=== PATIENT | male | born 1985 | race Caucasian/White ===

== ENCOUNTER → 2024-09-01 | Outpatient (CLI) | payer OTHER, SELFPAY ==
--- NOTE | 2024-09-01 16:20 | RAD_ITS ---
PROCEDURE: CHEST PA AND LATERAL REASON FOR EXAM: Cough. TECHNIQUE: Frontal and lateral views of the chest. COMPARISON: None. FINDINGS: Lungs: Lungs clear of pneumonia and congestion. Suspected subsegmental atelectasis in the right lower lobe. On the lateral projection, a 1.3 cm nodular density projects over the heart. Hyperaeration. Pleura: No pleural effusions, thickening, or pneumothorax. Heart: Normal in size and configuration. Mediastinum/Pooja: Unremarkable. Great vessels: Unremarkable. Bones/soft tissues: Unremarkable. RAD/Chest PA and Lateral IMPRESSION: Small nodular density projecting over the base of the heart seen on the lateral projection. This may represent a granuloma. Subsegmental atelectasis suspected in the right lower lobe. Hyperaeration. Reading Location: [place] [id number]
== END | disposition home or self-care (01) ==
LOC: MTRAD 16:20
PROVIDERS: Referring Provider Physician Assistant; Visit Provider Physician Assistant
DX: R05.9 Cough, unspecified (principal)
CPT/HCPCS: 71046